=== PATIENT | female | born 1995 | race Caucasian/White ===

== ENCOUNTER 2016-11-21 18:09 | Emergency (ER) | payer OTHER ==
[~2016-11-21] VITALS: Ht 157.5 cm; Wt 81.7 kg
[2016-11-21] MEDS ORDERED: ZYRTEC10 M5 (18:16)
[2016-11-21] MEDS ORDERED: PAXIL10 MG PO (18:16)
[2016-11-21] MEDS ORDERED: SINGULAIR 10 MG10 M1 PO (18:17)
[2016-11-21 19:54] VITALS: BP 134/87
== END 2016-11-21 19:54 | disposition home or self-care (01) ==
LOC: ER 18:09
DX: S91.312A Laceration without foreign body, left foot, initial encounter (principal); J45.909 Unspecified asthma, uncomplicated; F32.9 Major depressive disorder, single episode, unspecified; F17.210 Nicotine dependence, cigarettes, uncomplicated; F10.99 Alcohol use, unspecified with unspecified alcohol-induced disorder; W26.0XXA Contact with knife, initial encounter; Y93.89 Activity, other specified; Y92.89 Other specified places as the place of occurrence of the external cause; Y99.8 Other external cause status